=== PATIENT | female | born 1995 | race American Indian/Alaskan Native ===

== ENCOUNTER 2018-07-09 18:06 | Inpatient (IN) | payer BC, MEDICAID ==
[2018-07-09] MEDS ORDERED: ZOFRAN IV PRN ×2 (19:50→20:04)
[2018-07-09] MEDS ORDERED: BRETHINE SUB-Q PRN ×2 (19:50→20:04)
[2018-07-09] MEDS ORDERED: BRETHINE IVP PRN ×2 (19:50→20:04)
[2018-07-09] MEDS ORDERED: MINERAL OIL PO PRN ×2 (19:50→20:04)
[2018-07-09] MEDS ORDERED: STADOL IV PRN ×2 (19:50→20:04)
[2018-07-09] MEDS ORDERED: XYLOCAINE 2% INFILTRATI ONE ×2 (19:50→20:04)
[2018-07-09] MEDS ORDERED: AMPICILLIN/NS 2 GM/100 ML 2 GM/100 ML BAG IV ONE (19:50)
[2018-07-09] MEDS ORDERED: PHENERGAN PO PRN ×2 (19:50→20:04)
--- NOTE | 2018-07-09 19:50 | History and Physical Report ---
History of Present Illness Date of examination: 07/09/18 Chief complaint: Labor History of present illness: Pt is a 23yo BF EDC 07/21/18; EGA 38 2/7 weeks presents from the office for admission due to advanced cervical dilatation. She received care at [facility] since 12 weeks and course has been unremarkable. records are available and GBS is negative. Past History Past Medical History: no pertinent history Past Surgical History: [employer]/uterine surgery (right salpingectomy) Family/Genetic History: hypertension Social history: no significant social history, single - Obstetrical History Expected Date of Delivery: 07/21/18 Actual Gestation: 38 Week(s) 3 Day(s) : 2 Medications and Allergies Allergies Allergy/AdvReac Type Severity Reaction Status Date / Time shellfish derived AdvReac Angioedema Verified 07/09/18 19:07 Review of Systems All systems: negative - Vital Signs Vital signs: Vital Signs Temp Resp 98.9 F 16 07/09/18 18:55 07/09/18 18:55 Temp Pulse Resp BP Pulse Ox 98.9 F 103 H 16 116/73 07/09/18 18:55 07/09/18 19:20 07/09/18 18:55 07/09/18 19:20 - Physical Exam Breasts: Positive: deferred Cardiovascular: Regular rate Lungs: Positive: Clear to auscultation Abdomen: Positive: normal appearance Genitourinary (Female): Positive: normal external genitalia Uterus: Positive: enlarged Extremities: Positive: normal - Obstetrical FHR: category 1 Uterine Contraction Monitor Mode: External Cervical Dilatation: 7 (per nurse) Cervical Effacement Percentage: 70 (per nurse) station: -2 Uterine Contraction Pattern: Irregular Uterine Tone Measurement Phase: Contraction Uterine Contraction Intensity: Mild Results Result Diagrams: 07/09/18 20:00 All other labs normal. Assessment and Plan - Patient Problems (1) 38 weeks gestation of Onset Date: 07/09/18 Current Visit: Yes Status: Acute Plan to address problem: A: IUP @ 38 2/7 weeks in labor P: Admit to L&D for expectant vaginal delivery
[2018-07-09] MEDS ORDERED: PITOCin/NS 30 UNIT/500ML 30 UNITS/500 ML BAG IV SCH ×4 (20:00→21:00)
[2018-07-09] MEDS ORDERED: LACTATED RINGERS 1,000 ML IV SCH ×2 (20:00→21:00)
[2018-07-09] MEDS ORDERED: PITOCin/NS 20 UNIT/1000ML DRIP 20 UNITS/1,000 ML BAG IV SCH ×2 (20:00→21:00)
[2018-07-09] MEDS ORDERED: NARCAN 0.4 MG/1 ML IV PRN (20:04)
[2018-07-09] MEDS ORDERED: SUBLIMAZE IV PRN (20:04)
[2018-07-09 20:20] LABS: Hematocrit 36.7 % (30.3-42.9); Hemoglobin 12.6 gm/dl (10.1-14.3); Mean Corpuscular HGB Conc 34 % (30-34); Mean Corpuscular Volume 90 fl (79-97); Platelet Count 200 K/mm3 (140-440); Red Blood Count 4.09 M/mm3 (3.65-5.03); Red Cell Distribution Width 14.9 % (13.2-15.2)
[2018-07-09] MEDS ORDERED: AMPICILLIN/NS 1 GM/50 ML 1 GM/50 ML BAG IV SCH (23:52)
[2018-07-10] MEDS: SUBLIMAZE IV PRN ×2 (02:10→04:25)
[2018-07-10] MEDS ORDERED: NARCAN 2 MG/2 ML IV PRN (06:31)
--- NOTE | 2018-07-10 06:35 | Anesthesia Consultation ---
Anesthesia Consult and Med Hx Date of service: 07/10/18 - Airway Anesthetic Teeth Evaluation: Good ROM Head & Neck: Adequate Mental/Hyoid Distance: Adequate Mallampati Class: Class II Intubation Access Assessment: Good - Pulmonary Exam CTA: Yes - Cardiac Exam Cardiac Exam: RRR - Pre-Operative Health Status ASA Pre-Surgery Classification: ASA2 Proposed Anesthetic Plan: Epidural - Pulmonary Hx Smoking: No Hx Asthma: No Hx Respiratory Symptoms: No SOB: No COPD: No Home Oxygen Therapy: No Hx Pneumonia: No Hx Sleep Apnea: No - Cardiovascular System Hx Hypertension: No Hx Coronary Artery Disease: No Hx Heart Attack/AMI: No Hx Angina: No Hx Percutaneous Transluminal Coronary Angioplasty (PTCA): No Hx Cardia Arrhythmia: No Hx Pacemaker: No Hx Internal Defibrillator: No Hx Valvular Heart Disease: No Hx Heart Murmur: No Hx Peripheral Vascular Disease: No - Central Nervous System Hx Neuromuscular Disorder: No Hx Seizures: No CVA: No Hx Back Pain: No Hx Psychiatric Problems: No - Gastrointestinal Hx Ulcer: No Hx Gastroesophageal Reflux Disease: No - Endocrine Hx Renal Disease: No Hx End Stage Renal Disease: No Hx Cirrhosis: No Hx Liver Disease: No Hx Insulin Dependent Diabetes: No Hx Non-Insulin Dependent Diabetes: No Hx Thyroid Disease: No Hx Hypothyroidism: No Hx Hyperthyroidism: No - Hematic Hx Anemia: Yes Hx Sickle Cell Disease: No - Other Systems Hx Alcohol Use: No Hx Substance Use: No Hx Cancer: No Hx Obesity: No
[2018-07-10] MEDS ORDERED: fentaNYL-BUPIV 2 MCG/ML-0.125% 200 MCG/100 ML BAG EPIDURAL SCH (07:00)
--- NOTE | 2018-07-10 07:02 | Procedure Note ---
OB Delivery Note - Delivery Date of Delivery: 07/10/18 Surgeon: KEVIN BUSTILLO Estimated blood loss: 100cc - Vaginal Delivery presentation: vertex Delivery position: OA Intrapartum events: PROM->1hr before delivery, mult.variable deceleratio Delivery induction: none Delivery augmentation: rupture of membranes, pitocin Delivery monitor: external FHT, external uterine Route of delivery: Delivery placenta: spontaneous Delivery cord: nuchal cord, 3 umbilical vessels Episiotomy: none Delivery laceration: none Anesthesia: epidural Delivery comments: delivered OA and placed on Mom's chest for [id number] bonding and delayed cord clamping, cut by Dad - A at 1 minute: 8 at 5 minutes: 9 Gender: Male (3226gms)
[2018-07-10] MEDS ORDERED: BENADRYL PO PRN (07:30)
[2018-07-10] MEDS ORDERED: ZOFRAN IV PRN (08:00)
[2018-07-10] MEDS ORDERED: NORCO 5/325 PO PRN (08:00)
[2018-07-10] MEDS ORDERED: LANSINOH TP PRN (08:00)
[2018-07-10] MEDS ORDERED: PITOCin/NS 20 UNIT/1000ML DRIP 20 UNITS/1,000 ML BAG IV SCH (08:00)
[2018-07-10] MEDS ORDERED: PHENERGAN PO PRN (08:00)
[2018-07-10] MEDS ORDERED: SODIUM CHLORIDE FLUSH SYRINGE 10 ML IV PRN (08:00)
[2018-07-10] MEDS ORDERED: TUCKS PAD TP PRN (08:00)
[2018-07-10] MEDS ORDERED: TYLENOL PO PRN (08:00)
[2018-07-10] MEDS ORDERED: PHENERGAN PR PRN (08:00)
[2018-07-10] MEDS ORDERED: DULCOLAX PR PRN (10:00)
[2018-07-10] MEDS: IBUPROFEN PO SCH ×2 (10:38→16:54)
[2018-07-10] MEDS: COLACE PO SCH (10:39)
[2018-07-10] MEDS: FEOSOL PO SCH (10:40)
[2018-07-10] MEDS: PRENATAL VITAMIN PO SCH (10:40)
[2018-07-10 19:30] LABS: Hematocrit 36.6 % (30.3-42.9); Hemoglobin 12.2 gm/dl (10.1-14.3)
[2018-07-10] MEDS ORDERED: MILK OF MAGNESIA PO PRN (22:00)
[2018-07-11] MEDS: FEOSOL PO SCH ×3 (00:11→22:17)
[2018-07-11] MEDS: IBUPROFEN PO SCH ×5 (00:11→22:17)
[2018-07-11] MEDS: COLACE PO SCH ×3 (00:11→22:17)
[2018-07-11] MEDS ORDERED: BOOSTRIX IM ONE (06:00)
--- NOTE | 2018-07-11 08:31 | Progress Note ---
Assessment and Plan - Patient Problems (1) 38 weeks gestation of Onset Date: 07/09/18 Current Visit: Yes Status: Resolved (2) (normal spontaneous vaginal delivery) Onset Date: 07/11/18 Current Visit: Yes Status: Resolved Plan to address problem: A: S/P - PPD #1 Doing well P: May go home tomorrow. Subjective - Subjective Date of service: 07/11/18 Principal diagnosis: s/p - PPD #1 Interval history: Pt is feeling well without complaints. Bleeding improved. Patient reports: appetite normal, voiding normally, pain well controlled, flatus, ambulating normally, no dizzy ambulation, no nauseated : doing well, nursing well Objective - Vital Signs Latest vital signs: Vital Signs Temp Pulse Resp BP Pulse Ox 07/11/18 00:00 98.9 F 92 H 18 107/74 07/10/18 18:34 109 H 98 07/10/18 16:45 98.6 F 120 H 20 117/68 96 07/10/18 10:00 98.6 F 97 H 18 130/69 Intake and Output 07/10/18 07/11/18 07/11/18 22:59 06:59 14:59 Intake Total 240 240 Output Total 1 Balance 239 240 Intake: Intake, Free Water 240 240 Output: Urine 1 Void 1 Other: Total, Output Amount 1 # Voids Void 1 - Exam Abdomen: Present: normal appearance, soft Uterus: Present: normal, firm, fundal height below umbilicus Extremities: Present: normal - Labs Labs: Laboratory Tests 07/09/18 07/09/18 07/09/18 20:00 20:00 20:00 WBC 9.8 RBC 4.09 Hgb 12.6 Hct 36.7 MCV 90 MCH 31 MCHC 34 RDW 14.9 Plt Count 200 RPR Nonreactive Blood Type A POSITIVE Antibody Screen Negative 07/10/18 18:40 WBC RBC Hgb 12.2 Hct 36.6 MCV MCH MCHC RDW Plt Count RPR Blood Type Antibody Screen
[2018-07-11] MEDS: PRENATAL VITAMIN PO SCH (09:48)
[2018-07-11] MEDS ORDERED: M-M-R II VACCINE SUB-Q ONE (11:00)
[2018-07-12] MEDS: IBUPROFEN PO SCH ×2 (02:00→16:15)
[2018-07-12 08:20] VITALS: BP 142/78
--- NOTE | 2018-07-12 12:53 | Discharge Summary ---
Providers - Providers Date of Admission: 07/09/18 20:13 Date of discharge: 07/12/18 Attending physician: KEVIN BUSTILLO Primary care physician: KEVIN BUSTILLO Hospitalization Reason for admission: active labor, IUP at term Delivery: Episiotomy: none Laceration: none Other procedures: none complications: none Discharge diagnosis: IUP at term delivered [place] baby: male Hospital course: Unremarkable. Condition at discharge: Good Disposition: DC-01 TO HOME OR SELFCARE - Discharge Diagnoses (1) 38 weeks gestation of Status: Resolved (2) (normal spontaneous vaginal delivery) Status: Resolved Plan - Discharge Medications Prescriptions: Ibuprofen [Motrin 600 MG tab] 600 mg PO Q6H #30 tablet Vit-Fe Fumar-FA [ Vitamin] 1 each PO QDAY #30 tablet - Provider Discharge Summary Activity: routine, no sex for 6 weeks, no heavy lifting 4 weeks, no strenuous exercise Diet: routine Instructions: routine Additional instructions: [] Smoking cessation referral if applicable(refer to patient education folder for contact #) [] Refer to [facility] Booklet Call your doctor immediately for: * Fever > 100.5 * Heavy vaginal bleeding ( >1 pad per hour) * Severe persistent headache * Shortness of breath * Reddened, hot, painful area to leg or breast * Drainage or odor from incision. * Keep incision clean and dry at all times and follow doctor's instructions regarding bathing/showering - Follow up plan Follow up: KEVIN BUSTILLO MD [Primary Care Provider] - 6 Weeks MARY CALLAWAY CNM [Advanced Practice Nurse] - 6 Weeks
[2018-07-12] MEDS: COLACE PO SCH (16:15)
[2018-07-12] MEDS: PRENATAL VITAMIN PO SCH (16:15)
[2018-07-12] MEDS: FEOSOL PO SCH (16:15)
== END 2018-07-12 17:10 | disposition home or self-care (01) | DRG 807 ==
LOC: TRG 18:06 → LD 20:13 → OB 07-10 09:19
PROVIDERS: ADMIT Obstetrics & Gynecology; ATTEND Obstetrics & Gynecology
PROC: 10E0XZZ Delivery of Products of Conception, External Approach (ICD-10-PCS; principal; 2018-07-10)
PROC: 3E0R3BZ Introduction of Anesthetic Agent into Spinal Canal, Percutaneous Approach (ICD-10-PCS; 2018-07-10)
PROC: 00HU33Z Insertion of Infusion Device into Spinal Canal, Percutaneous Approach (ICD-10-PCS; 2018-07-10)
DX: O42.02 Full-term premature rupture of membranes, onset of labor within 24 hours of rupture (principal); Z37.0 Single live birth; O76 Abnormality in fetal heart rate and rhythm complicating labor and delivery; O69.81X0 Labor and delivery complicated by cord around neck, without compression, not applicable or unspecified; Z3A.38 38 weeks gestation of pregnancy
CPT/HCPCS: 36415; 85014; 85018; 85027; 86592; 86850; 86900; 86901; G0378; J0290; J2590; J3010; J7120

== ENCOUNTER 2019-08-04 03:58 | Inpatient (IN) | payer BC, MEDICAID ==
[2019-08-04] MEDS ORDERED: AMPICILLIN/NS 2 GM/100 ML 2 GM/100 ML BAG IV ONE ×2 (04:11→06:23)
[2019-08-04] MEDS ORDERED: fentaNYL 100 MCG/2 ML INJ ONE (04:15)
[2019-08-04] MEDS ORDERED: fentaNYL 100 MCG/2 ML INJ IV PRN (04:20)
[2019-08-04] MEDS ORDERED: MINERAL OIL 30 ML ORAL LIQD PO PRN (04:20)
[2019-08-04] MEDS ORDERED: ONDANSETRON 4 MG/2 ML INJ IV PRN ×2 (04:20→18:48)
[2019-08-04] MEDS ORDERED: LIDOCAINE (2%) 20 MG/1 ML VIAL 20 ML MDV INFILTRATI ONE (04:20)
[2019-08-04] MEDS ORDERED: TERBUTALINE 1 MG/1 ML INJ IVP PRN (04:20)
[2019-08-04] MEDS ORDERED: ePHEDrine SULFATE 50 MG/1 ML INJ IV PRN (04:20)
[2019-08-04] MEDS ORDERED: TERBUTALINE 1 MG/1 ML INJ SUB-Q PRN (04:20)
--- NOTE | 2019-08-04 04:26 | History and Physical Report ---
History of Present Illness Date of examination: 08/04/19 Date of admission: 08/04/19 03:58 Chief complaint: active labor History of present illness: Patient walked into OB triage 9cm/100%/[address] Gregorio, no PNR available Past History - Obstetrical History : 2 Medications and Allergies Allergies Allergy/AdvReac Type Severity Reaction Status Date / Time shellfish derived AdvReac Angioedema Verified 07/09/18 19:07 Home Medications Medication Instructions Recorded Confirmed Last Taken Type Ibuprofen [Motrin 600 MG tab] 600 mg PO Q6H #30 tablet 07/12/18 Unknown Rx Vit-Fe Fumar-FA [ 1 each PO QDAY #30 tablet 07/12/18 Unknown Rx Vitamin] Active Meds: Active Medications Ephedrine Sulfate (Ephedrine Sulfate) 10 mg IV Q2M PRN PRN Reason: Hypotension Oxytocin/Sodium Chloride (Pitocin/Ns 20 Unit/1000ml Drip) 20 units in 1,000 mls @ 125 mls/hr IV DIRECT RADHA Oxytocin/Sodium Chloride (Pitocin/Ns 30 Unit/500ml) 30 units in 500 mls @ 1 mls/hr IV TITR RADHA; Protocol Oxytocin/Sodium Chloride (Pitocin/Ns 30 Unit/500ml) 30 units in 500 mls @ 0 mls/hr IV TITR RADHA; Protocol Lactated Ringer's (Lactated Ringers) 1,000 mls @ 125 mls/hr IV DIRECT RADHA Mineral Oil (Mineral Oil) 30 ml PO QHS PRN PRN Reason: Constipation Terbutaline Sulfate (Brethine) 0.25 mg SUB-Q ONCE PRN PRN Reason: Hyperstimulation/Hypertonicity Terbutaline Sulfate (Brethine) 0.25 mg IVP ONCE PRN PRN Reason: Hyperstimulation/Hypertonicity - Vital Signs Vital signs: Vital Signs Pulse BP 104 H 129/71 08/04/19 04:05 08/04/19 04:05 Temp Pulse Resp BP Pulse Ox 104 H 129/71 08/04/19 04:05 08/04/19 04:05 - Physical Exam Breasts: Positive: deferred Cardiovascular: Regular rate Lungs: Positive: Clear to auscultation Abdomen: Positive: normal appearance Vagina: Positive: normal moisture Cervix: Negative: lesion Extremities: Positive: normal Deep Tendon Reflex Grade: Normal +2 - Obstetrical FHR: category 1 Uterine Contraction Monitor Mode: External Cervical Dilatation: 9 Cervical Effacement Percentage: 100 station: 0 Uterine Contraction Pattern: Regular Results All other labs normal. Assessment and Plan active labor Plan:expect Maternal/ wellbeing reassuring overall Gabriela Will MD
[2019-08-04] MEDS ORDERED: OXYTOCIN DRIP 30 UNITS/500 ML BAG IV SCH ×2 (05:00)
[2019-08-04] MEDS ORDERED: OXYTOCIN 20 UNIT/1000ML DRIP 20 UNITS/1,000 ML BAG IV SCH (05:00)
[2019-08-04] MEDS ORDERED: LACTATED RINGERS 1,000 ML IV SCH (05:00)
[2019-08-04 05:05] LABS: Hematocrit 37.1 % (30.3-42.9); Hemoglobin 12.3 gm/dl (10.1-14.3); Mean Corpuscular HGB Conc 33 % (30-34); Mean Corpuscular Volume 87 fl (79-97); Platelet Count 228 K/mm3 (140-440); Red Blood Count 4.27 M/mm3 (3.65-5.03); Red Cell Distribution Width 14.7 % (13.2-15.2)
[2019-08-04] MEDS ORDERED: AMPICILLIN/NS 1 GM/50 ML 1 GM/50 ML BAG IV ONE (06:23)
--- NOTE | 2019-08-04 06:51 | Procedure Note ---
OB Delivery Note - Delivery Date of Delivery: 08/04/19 Surgeon: CINTHIA VILLALBA Estimated blood loss: 200cc - Vaginal Delivery position: OA Intrapartum events: none Delivery induction: none Delivery monitor: external FHT, external uterine Route of delivery: Delivery placenta: spontaneous Delivery cord: 3 umbilical vessels Delivery laceration: none Delivery comments: Patient pushed to delivery over an intact perineum a viable female with weight 3433gms and 8,9. No nuchal cord. Delivery of vertex and anterior shoulder atraumatic. Spontaneous cry at delivery. Baby placed on maternal abdomen. Cord clamped and cut after 1 minute. An intact placenta with three vessel cord delivered spontaneously. Firm Fundus. No laceration of the perineum, vagina or cervix noted. All sponge, needle and instrument counts correctx2. EBL 200ml. Mom and baby stable to . Daysi MATTHEWS - Infant A at 1 minute: 8 at 5 minutes: 9 Gender: Female (3433gms)
[2019-08-04] MEDS ORDERED: IBUPROFEN 800 MG TAB PO PRN (08:00)
[2019-08-04] MEDS: IBUPROFEN 600 MG TAB PO SCH (18:30)
[2019-08-04] MEDS ORDERED: ACETAMINOPHEN 325 MG TAB PO PRN (18:48)
[2019-08-04] MEDS ORDERED: PROMETHAZINE 25 MG TAB PO PRN (18:48)
[2019-08-04] MEDS ORDERED: PROMETHAZINE 25 MG RECT SUPP PR PRN (18:48)
[2019-08-04] MEDS ORDERED: WITCH HAZEL/ GLYCERIN PAD TP PRN (18:48)
[2019-08-04] MEDS ORDERED: diphenhydrAMINE 25 MG CAP PO PRN (18:48)
[2019-08-04] MEDS ORDERED: MAGNESIUM HYDROXIDE (MOM) ORAL LIQD UDC PO PRN (18:48)
[2019-08-04] MEDS ORDERED: LANOLIN/ZINC/DIMETHICONE (LANSINOH) 7 GM TP PRN (18:48)
[2019-08-04 19:03] LABS: Hematocrit 36.5 % (30.3-42.9); Hemoglobin 12.4 gm/dl (10.1-14.3)
[2019-08-05] MEDS: IBUPROFEN 600 MG TAB PO SCH ×3 (00:16→13:15)
[2019-08-05 07:13] LABS: Hematocrit 35.7 % (30.3-42.9); Hemoglobin 11.9 gm/dl (10.1-14.3)
[2019-08-05] MEDS ORDERED: FERROUS SULFATE 325 MG TAB PO ONE (10:00)
--- NOTE | 2019-08-05 12:29 | Progress Note ---
Assessment and Plan A: PP Day # 1 Stable P: Follow Routine Orders D/C home today per patient request RTO in 6 Weeks Subjective - Subjective Date of service: 08/05/19 Patient reports: appetite normal, voiding normally, pain well controlled, fla tus, ambulating normally [place]: doing well Objective - Vital Signs Latest vital signs: Vital Signs Temp Pulse Resp BP Pulse Ox 08/05/19 08:37 98.3 F 80 16 117/73 98 08/05/19 00:41 97.8 F 89 18 98/55 97 08/04/19 16:06 99.3 F 96 H 20 115/68 98 Intake and Output 08/04/19 08/05/19 08/05/19 22:59 06:59 14:59 Intake Total 360 120 Output Total 500 Balance -140 120 Intake: Oral 120 120 Intake, Free Water 240 Output: Urine 500 Void 500 Other: Total, Intake Amount 120 120 Total, Output Amount 500 Voiding Method Toilet # Voids Void 2 - Exam Breasts: Present: normal Cardiovascular: Present: Regular rate Lungs: Present: Clear to auscultation, Normal air movement Abdomen: Present: normal appearance, soft, normal bowel sounds Uterus: Present: normal, firm, fundal height below umbilicus
--- NOTE | 2019-08-05 12:33 | Discharge Summary ---
Providers - Providers Date of Admission: 08/04/19 03:58 Date of discharge: 08/05/19 Attending physician: CINTHIA VILLALBA MD Primary care physician: CINTHIA VILLALBA MD Hospitalization Reason for admission: active labor Delivery: Episiotomy: none Laceration: none Other procedures: none complications: none Discharge diagnosis: IUP at term delivered baby: female Condition at discharge: Good Disposition: DC-01 TO HOME OR SELFCARE Plan - Provider Discharge Summary Activity: routine, no sex for 6 weeks, no heavy lifting 4 weeks, no strenuous exercise Diet: routine Instructions: routine Additional instructions: [] Smoking cessation referral if applicable(refer to patient education folder for contact #) [] Refer to [facility] Booklet Call your doctor immediately for: * Fever > 100.5 * Heavy vaginal bleeding ( >1 pad per hour) * Severe persistent headache * Shortness of breath * Reddened, hot, painful area to leg or breast * Drainage or odor from incision. * Keep incision clean and dry at all times and follow doctor's instructions regarding bathing/showering - Follow up plan Follow up: CINTHIA VILLALBA MD [Primary Care Provider] - 6 Weeks
[2019-08-06] MEDS: IBUPROFEN 600 MG TAB PO SCH ×3 (00:40→12:10)
[2019-08-06 09:20] VITALS: BP 111/64
== END 2019-08-06 16:30 | disposition home or self-care (01) | DRG 807 ==
LOC: LD 03:58 → OB 08:59
PROVIDERS: ADMIT Obstetrics & Gynecology; ATTEND Obstetrics & Gynecology
PROC: 10E0XZZ Delivery of Products of Conception, External Approach (ICD-10-PCS; principal; 2019-08-04)
DX: O80 Encounter for full-term uncomplicated delivery (principal); Z37.0 Single live birth; Z91.013 Allergy to seafood; Z3A.37 37 weeks gestation of pregnancy
CPT/HCPCS: 36415; 85014; 85018; 85027; 86850; 86900; 86901; G0378; J0290; J2590; J3010; J7120